=== PATIENT | male | born 1940 | race Caucasian/White ===

== ENCOUNTER 2018-03-03 13:27 | Emergency (ER) | payer OTHER ==
[~2018-03-03] VITALS: Ht 337.8 cm; Wt 74.4 kg
[~2018-03-03 13:27] MED LIST: ACCUPRIL10 MG; DIOVAN40 MG PO; LEVAQUIN500 MG PO; LEXAPRO5 MG; PEPCID20 MG PO; PEPCID40 MG PO; PROTONIX40 MG PO; SEROQUEL50 MG; TRICOR48 MG PO; VOLTAREN-XR100 MG PO
[2018-03-03] MEDS ORDERED: DICLOFENAC SODI50 MG PO (16:19)
[2018-03-03] MEDS ORDERED: MEDROLPACK PO (16:19)
[2018-03-03] MEDS ORDERED: NORFLEX100MG PO (16:19)
== END 2018-03-03 16:38 | disposition home or self-care (01) ==
LOC: ER 13:27
DX: S39.012A Strain of muscle, fascia and tendon of lower back, initial encounter (principal); X50.0XXA Overexertion from strenuous movement or load, initial encounter; Y93.89 Activity, other specified; Y92.89 Other specified places as the place of occurrence of the external cause; Y99.8 Other external cause status

== ENCOUNTER 2018-08-10 11:57 | Emergency (ER) | payer OTHER ==
[~2018-08-10] VITALS: Ht 170.2 cm; Wt 74.8 kg
[~2018-08-10 11:57] MED LIST changes: +DICLOFENAC SODI50 MG PO; +MEDROLPACK PO; +NORFLEX100MG PO
== END 2018-08-10 16:28 | disposition home or self-care (01) ==
LOC: ER 11:57
DX: M75.21 Bicipital tendinitis, right shoulder (principal)

== ENCOUNTER 2021-03-16 11:10 | Emergency (ER) | payer OTHER ==
[~2021-03-16] VITALS: Ht 170.2 cm; Wt 72.6 kg
== END 2021-03-16 16:37 | disposition home or self-care (01) ==
LOC: ER 11:10
DX: K57.30 Diverticulosis of large intestine without perforation or abscess without bleeding (principal); R10.32 Left lower quadrant pain

== ENCOUNTER 2023-06-09 12:50 | Emergency (ER) | payer OTHER ==
[~2023-06-09] VITALS: Ht 167.6 cm; Wt 74.8 kg
[2023-06-09] MEDS ORDERED: ATORVASTATIN CA20 MG PO (12:59)
[2023-06-09] MEDS ORDERED: INTESTINEX680 M1 PO (18:34)
[2023-06-09] MEDS ORDERED: CIPRO500 MG PO (18:34)
[2023-06-09] MEDS ORDERED: PEPCID AC20 MG PO (18:34)
[2023-06-09] MEDS ORDERED: METRONIDAZOLE500 MG PO (18:34)
[2023-06-09] MEDS ORDERED: DICY20TA PO (18:34)
== END 2023-06-09 19:01 | disposition home or self-care (01) ==
LOC: ER 12:50
PROVIDERS: Emergency Medicine
DX: K57.92 Diverticulitis of intestine, part unspecified, without perforation or abscess without bleeding (principal); R10.9 Unspecified abdominal pain
CPT/HCPCS: 36415; 74177; 99284; Q9965

== ENCOUNTER 2023-08-03 12:22 | Emergency (ER) | payer OTHER ==
[~2023-08-03] VITALS: Ht 170.2 cm; Wt 71.7 kg
[~2023-08-03 12:22] MED LIST changes: +ATORVASTATIN CA20 MG PO; +CIPRO500 MG PO; +DICY20TA PO; +INTESTINEX680 M1 PO; +METRONIDAZOLE500 MG PO; +PEPCID AC20 MG PO
== END 2023-08-03 17:11 | disposition home or self-care (01) ==
LOC: ER 12:22
DX: S49.82XA Other specified injuries of left shoulder and upper arm, initial encounter (principal); W18.39XA Other fall on same level, initial encounter; Y93.89 Activity, other specified; Y92.89 Other specified places as the place of occurrence of the external cause; S79.812A Other specified injuries of left hip, initial encounter; I10 Essential (primary) hypertension
CPT/HCPCS: 73030; 73070; 73502; 96372; 99284; J1885

== ENCOUNTER 2023-11-26 08:52 | Outpatient (CLI) | payer OTHER | END 2023-11-26 09:04 | disposition home or self-care (01) | LOC: TOM 08:52 | PROVIDERS: ATTEND Internal Medicine Gastroenterology | DX: K56.609 Unspecified intestinal obstruction, unspecified as to partial versus complete obstruction (principal); K63.5 Polyp of colon ==